=== PATIENT | male | born 1970 | race Caucasian/White ===

== ENCOUNTER 2017-02-16 01:46 | Inpatient (IN) | payer OTHER ==
[~2017-02-16] VITALS: Ht 166.4 cm; Wt 94.1 kg
--- NOTE | ~2017-02-16 | DS ---
PATIENT'S NAME: ANNETTE YBARRA [facility] AGE: 46 Y [address] ROOM: [id number] [place], [place] [address] LOCATION: [facility] ADMIT DATE: 02/16/2017 Discharge Summary DISCHARGE DATE: 02/18/2017 FAMILY PHYSICIAN: Physician, Unknown ATTENDING PHYSICIAN: Denae Cabral PRINCIPAL DISCHARGE DIAGNOSIS: Hemoptysis with a right upper lobe source. SECONDARY DIAGNOSES: 1. Long use of tobacco. 2. 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 3. Hypertension, severe. 4. Hyperlipidemia. 5. Obstructive sleep apnea, treated with CPAP at 18 cm of water. 6. History of cardiomyopathy with an EF of 20-30% documented on [facility] admission from 05/01/2016. 7. History of multisubstance abuse. 8. Acute kidney injury versus chronic kidney disease. Creatinine of 1.3 on admission, it improved to 1.2 on the . CONSULTATIONS: 1. ENT, Abran Cortes on 02/16/2017. 2. Pulmonology, Dr. Blue on 02/16/2017. PROCEDURES: 1. Flexible laryngoscopy on 02/16/2017. 2. Bronchoscopy, 02/16/2017. BRIEF HISTORY: Mr. Ybarra is a 46-year-old male, who has severe hypertension requiring multiple medications. He has cardiomyopathy for which he reports he has been hospitalized at least 4 times. He is unsure of the etiology, but this may be hypertensive heart disease related to his poorly- controlled hypertension and then he has a long history of smoking. He presented to the hospital at [place] with hemoptysis which started about 4 o'clock in the afternoon with severe cough. The cough had not been prominent prior to the episode, was associated with coughing up bright red blood. He was transferred here for further evaluation and management. A CT scan at [place] had showed apical bullae, worse on the right than the left. He was initially seen by ENT and there was no upper airway bleeding. Dr. Blue took him for bronchoscopy and found a source of bleeding in the right upper lobe. An attempt was made at an embolization by Dr. Gay in Interventional Radiology. However, the vessel was too small and not amenable PATIENT'S NAME: ANNETTE YBARRA [facility] AGE: 46 Y [address] ROOM: [id number] [place], [place] [address] LOCATION: GICU ADMIT DATE: 02/16/2017 Discharge Summary DISCHARGE DATE: 02/18/2017 FAMILY PHYSICIAN: Physician, Unknown ATTENDING PHYSICIAN: Denae Cabral to the procedure. Subsequently, the patient's bleeding has subsided and he has had no bright red blood coughed up in the last 24 hours. He is ready for discharge. He has been encouraged to stop smoking by several of us and I again repeated my encouragement to smoking cessation. Now at the time of discharge, he has been on a NicoDerm patch and it was increased from 14 mg to 21 mg, but he said it does not impact his urge to smoke. He also has been unable to maintain care with a stable primary care physician. The healthcare administrative assistant gave him several options in [place] yesterday. INSTRUCTIONS AT DISCHARGE: 1. Diet: [place] [employer], low fat. 2. Activity: Walk 15 minutes every morning and 15 minutes in the evening. 3. Followup: Follow up with Dr. Blue in 2 weeks and establish care with a primary care physician in the near future. MEDICATIONS AT THE TIME OF DISCHARGE: 1. Amlodipine 10 mg p.o. daily. 2. Coreg 12.5 mg p.o. b.i.d. 3. Hydralazine 50 mg p.o. t.i.d. 4. Lisinopril 40 mg daily. 5. Potassium chloride 20 mEq daily. 6. Zocor 40 mg at bedtime. 7. Aspirin will be held for now. 8. Lasix 40 mg daily. We will advise him to consider resume aspirin after he sees Dr. Blue in 2 weeks. CONDITION AT DISCHARGE: Good. TIME SPENT: Less than 30 minutes. MEGA RIVERS MD LM/orly /[id number] d: 02/18/17 2354 t: 02/20/17 1856, DISCHARGE SUMMARY
--- NOTE | ~2017-02-16 | OR ---
PATIENT'S NAME: ANNETTE STEVENS [facility] AGE: 46 Y [address] ROOM: [id number], [place] [address] LOCATION: GICU ADMIT DATE: 02/16/2017 OR/Procedure Report DISCHARGE DATE: 02/18/2017 FAMILY PHYSICIAN: Physician, Unknown ATTENDING PHYSICIAN: Denae Cabral SURGEON: Thony Blue MD SOLDERING MACHINE SETTER: DATE OF PROCEDURE: 02/16/2017 PROCEDURE: Fiberoptic bronchoscopy. INDICATION FOR PROCEDURE: Hemoptysis. CONSENT: The risks and benefits of the procedure were discussed with the patient. He agrees to proceed with the procedure. PROCEDURE IN DETAIL: After the informed consent, the patient was brought to the endoscopy suite. General anesthesia was induced, please refer to the anesthesiology record. After the initial induction was done, an Olympus bronchoscope was introduced through a size 4 LMA into the tracheobronchial tree. The patient tolerated the procedure well. There were no immediate complications. FINDINGS ON PROCEDURE: The vocal cords were normal moving with breathing. The trachea was normal in caliber. There were no endobronchial lesions or secretions. There was trace that led down to the kelly, which was suctioned out. The kelly was sharp and non-splayed. The left mainstem was patent with no endobronchial lesions or secretions. The left upper lobe was patent with no endobronchial lesions or secretions. The left lower lobe was patent with no endobronchial lesions or secretions. There was blood coming down the left lung, which was suctioned out. The left upper and lower lobes were washed out using saline and there was no blood return. Right mainstem was patent. The right lower lobe was also patent. Right middle lobe was patent. There was bloody secretions was suctioned out. The right middle and right lower were washed out with no blood return. The right upper lobe on the other hand had a streak of blood coming down which was washed out using 20 mL of saline and then there was more blood coming out from the right upper lobe apical segment. There was no other segments found to be bleeding in the right upper lobe. The patient tolerated the procedure well. There were no immediate complications. The patient was extubated and transferred to PACU in stable condition. PATIENT'S NAME: ANNETTE STEVENS [facility] AGE: 46 Y [address] ROOM: [place] [address] LOCATION: GICU ADMIT DATE: 02/16/2017 OR/Procedure Report DISCHARGE DATE: 02/18/2017 FAMILY PHYSICIAN: Physician, Unknown ATTENDING PHYSICIAN: Denae Cabral RECOMMENDATIONS: We will await. The patient will require bronchial artery embolization. Dr. Rock has been contacted and we will follow up after the embolization has been done. MD SILVANO DEL TORO/orly /[id number] d: 03/10/17 2353 t: 03/17/17 1706, OPERATIVE SUMMARY
--- NOTE | ~2017-02-16 | CON ---
PATIENT'S NAME: ANNETTE YBARRA [facility] AGE: 46 Y [address] ROOM: [place] [address] LOCATION: GICU ADMIT DATE: 02/16/2017 Consultation DISCHARGE DATE: FAMILY PHYSICIAN: PHYSICIAN, UNKNOWN ATTENDING PHYSICIAN: YORDY CABRAL DATE OF CONSULTATION: 02/16/2017 REFERRING PHYSICIAN: Yordy Cabral MD REASON FOR CONSULTATION: Hemoptysis. HISTORY OF PRESENT ILLNESS: Mr. Ybarra is a 46-year-old male who presented to the emergency room in [place] yesterday for hemoptysis. It started around 4:00 p.m. yesterday. He was doing his regular business and began coughing. He did not have any shortness of breath or chest pain prior to this episode. Later that night, he went to the [place] ER. He has been feeling well other than this hemoptysis. He has not had any fevers or chills. He has not had any exposures to TB that he knows of. At [place], he did have a CT scan of his chest, which did not show any obvious abnormalities. No recent travel. He has not had any history of chest procedures including valve repairs, repair of tracheoesophageal fistula. Since being admitted to [facility], he continues to have hemoptysis this morning. No difficulty breathing except for when he gets into coughing fits. REVIEW OF SYSTEMS: Comprehensive review of systems performed is negative except as noted per HPI. PAST MEDICAL HISTORY: Significant for hypertension and congestive heart failure, with recovered ejection fraction of 55%. MEDICATION: Per chart. He is on aspirin 81 mg. No other anticoagulants. ALLERGIES: NO KNOWN DRUG ALLERGIES. FAMILY HISTORY: Premature coronary artery disease. SOCIAL HISTORY: He is a lifelong smoker and currently smokes about a half a pack a day, starting when he was 20. He is not a heavy drinker and does not use any other PATIENT'S NAME: ANNETTE YBARRA [facility] AGE: 46 Y [address] ROOM: [place] [address] LOCATION: GICU ADMIT DATE: 02/16/2017 Consultation DISCHARGE DATE: FAMILY PHYSICIAN: PHYSICIAN, UNKNOWN ATTENDING PHYSICIAN: YORDY CABRAL illicit drugs. PHYSICAL EXAMINATION: GENERAL: His voice is strong, in no acute distress. He is coughing, at times which is productive of blood. He is alert oriented x3. FACE: There are no lesions over his face. Parotid glands are symmetric without masses. EYES: Pupils equal, round, reactive to light. Extraocular muscles are intact. EARS: Ears are normal in appearance. NOSE: External nose is normal. There is some crusting anteriorly on the inferior turbinate, but no signs of active bleeding. MOUTH: Dental and alveolar structures are in fair repair. Mucosa of oral cavity and oropharynx is without any lesions. There is residual blood in his posterior pharynx. NECK: There is no cervical lymphadenopathy. The trachea is midline. THYROID: Without any nodularity. NEUROLOGIC: Cranial nerves 2-12 are grossly intact. CARDIOVASCULAR: Pulse is regular. RESPIRATORY: Symmetric chest rise. No stridor. PROCEDURE: Flexible laryngoscopy. INDICATION: Hemoptysis. The flexible laryngoscope was used for this examination. The patient has a septal deviation up to the right. The scope was passed into the left nasal passage. The nasal cavity was without any abnormalities. No purulence filling at the middle meatus. Nasopharynx was normal. Eustachian tubes seen bilaterally were normal. The scope was directed to the base of tongue. There were no masses in the base of tongue. There was some residual blood in this area. I had the patient to swallow some water which did clear the area. No signs of active bleeding anywhere in the oropharynx or hypopharynx. The piriform sinuses were clear without any pooling of secretions. Epiglottis was normal. Arytenoids were normal. True vocal cords had full and symmetric movement. There are no masses seen on the true vocal cords. The scope was withdrawn. The patient tolerated the procedure okay. LABORATORY DATA: Report from the outside CT scan reviewed and negative for any acute findings. CBC shows a white count of 11, hemoglobin of 14.4, hematocrit 42.1, and platelet count of 207. PATIENT'S NAME: ANNETTE YBARRA [facility] AGE: 46 Y [address] ROOM: [address] [address] LOCATION: [facility] ADMIT DATE: 02/16/2017 Consultation DISCHARGE DATE: FAMILY PHYSICIAN: PHYSICIAN, UNKNOWN ATTENDING PHYSICIAN: YORDY CABRAL ASSESSMENT: Hemoptysis. PLAN: There is no evidence of a source of the hemoptysis on our examination with a flexible laryngoscopy. The bleeding is not appeared to be coming up from the esophagus as does seem to be coming up from the trachea. The patient will likely need a pulmonology consultation and possible bronchoscopy to further identify where the hemoptysis is coming from. RHODA RYAN, ENT RESIDENT PGY5 FOR ABRAN PINK MD JY/modl /[id number] CC: MD Abran Morris MD d: 02/16/17 1523 t: 02/23/17 0957, CONSULTATION REPORT
--- NOTE | ~2017-02-16 | HP ---
[facility] 46 Y [address] ROOM: [place] [address] LOCATION: [facility] ADMIT DATE: 02/16/2017 History & Physical DISCHARGE DATE: FAMILY PHYSICIAN: PHYSICIAN, UNKNOWN ATTENDING PHYSICIAN: YORDY XIE DATE OF SERVICE: CHIEF COMPLAINT: Hemoptysis. HISTORY OF PRESENT ILLNESS: A 46-year-old gentleman with a past medical history of lifelong smoking and cardiomyopathy of unknown etiology, with the last known ejection fraction of 55%, presented to the [facility] with hemoptysis which started yesterday evening about 5 p.m., sudden in onset, associated with dark, coughing up of bright red blood, not associated with any shortness of breath, but he does complain of tightness in his chest. No fever, no chills. No headache. No extremity swelling or no abdominal pain noted. On further inquiry, he did not have any cough yesterday morning. No history of loss of appetite or weight loss. No history of recent travel. REVIEW OF SYSTEMS: All other systems reviewed and were negative except for what is mentioned in the HPI. PAST MEDICAL HISTORY: 1. Hypertension. 2. Congestive heart failure with recovered ejection fraction. MEDICATIONS: Being reconciled right now. ALLERGIES: NO KNOWN DRUG ALLERGIES. FAMILY HISTORY: Significant for premature coronary artery disease. SOCIAL HISTORY: Pybmuu-ahwe-ohip smoking history. PHYSICAL EXAMINATION: VITAL SIGNS: Blood pressure 190/80, pulse 72, respirations 16, afebrile, saturating 95% on room air. PATIENT'S NAME: ANNETTE STEVENS [facility] AGE: 46 Y [address] ROOM: [address] [address] LOCATION: [facility] ADMIT DATE: 02/16/2017 History & Physical DISCHARGE DATE: FAMILY PHYSICIAN: PHYSICIAN, UNKNOWN ATTENDING PHYSICIAN: YORDY XIE GENERAL: In moderate acute distress due to cough and coughing up blood. Alert and oriented x3. HEENT: Head; atraumatic, normocephalic. Eyes; nonicteric, no pallor. Oropharynx, moist mucous membranes. Fresh blood is seen in the oropharynx. No obvious source of bleeding can be identified from this examination. LUNGS: Mild crepitations bilaterally in the bases. CARDIOVASCULAR: S1 and S2. No murmurs, gallops, or rubs. ABDOMEN: Soft, nontender, nondistended. Bowel sounds present. EXTREMITIES: No clubbing, cyanosis, or edema. PSYCH: Normal affect, mood, and speech. MUSCULOSKELETAL: No muscle tenderness or joint swelling noted. ENDOCRINE: No thyromegaly or myxedema noted. SKIN: No rashes or bruises noted. LABORATORY DATA: Lab work from outside facility including a CT scan and chest x-ray are negative for any acute findings. EKG was reviewed from outside facility, showed normal sinus rhythm with T-wave inversions in I and aVL, which are old. Other lab included white count of 5.2, hemoglobin of 15, platelets 210. Sodium 130, potassium 3.7, chloride 104, bicarb 29, BUN 20, creatinine 1.5, calcium 8.7. ASSESSMENT AND PLAN: 1. Hemoptysis. 2. Acute kidney injury. 3. Hypertensive urgency. We are going to admit this patient to the ICU. We are going to start racemic epinephrine nebulization. ENT consultation will be obtained. I did speak to Dr. Cortes and he advised me to start epinephrine. We are going to observe the patient for now if any improvement with this treatment; if no, we will ask Dr. Cortes to come in and see the patient, given that there is nothing on the CT scan. Based on Dr. Cortes's examination on laryngoscopy, we will consult Pulmonary if needs to be. He has already received some IV fluids at the outside facility. We will just monitor creatinine for now. We will provide blood pressure control with labetalol if needs to be. Activity as tolerated. N.p.o. for now. Cough suppressant will also be given. The patient is full code. MD ARIE PULLIAM/orly PATIENT'S NAME: ANNETTE STEVENS [facility] AGE: 46 Y [address] ROOM: [place] [address] LOCATION: GICU ADMIT DATE: 02/16/2017 History & Physical DISCHARGE DATE: FAMILY PHYSICIAN: PHYSICIAN, UNKNOWN ATTENDING PHYSICIAN: YORDY XIE /[id number] D: [id number] T: 337 HISTORY & PHYSICAL
--- NOTE | ~2017-02-16 | CON ---
PATIENT'S NAME: RODNEY [facility] AGE: 46 Y [address] ROOM: [id number] [place], [place] [address] LOCATION: GICU ADMIT DATE: 02/16/2017 Consultation DISCHARGE DATE: 02/18/2017 FAMILY PHYSICIAN: Physician, Unknown ATTENDING PHYSICIAN: Denae Cabral DATE OF CONSULTATION: 02/16/2017 REFERRING PHYSICIAN: Abran Cortes MD REASON FOR CONSULTATION: Hemoptysis. HISTORY OF PRESENTING ILLNESS: This is a 46-year-old gentleman with a past medical history of smoking, cardiomyopathy of unknown etiology with last known ejection fraction of 55% presented to the [facility] with hemoptysis which started the day prior to his admission. It was sudden onset associated with dark sputum, then started to be bright red blood, not associated with any shortness of breath, the hemoptysis was more than a tablespoon each time and it was mixed with phlegm initially and then it became just blood. He denied any fever, chest pain, pleurisy, hemoptysis, nausea, vomiting, abdominal pain. He denied any recent weight loss, exposure to sick people. He denied any recent travel outside of the [place] there is a history of drug abuse. REVIEW OF SYSTEMS: A 10-point review of system was done and otherwise negative other than mentioned in the history of presenting illness. PAST MEDICAL HISTORY: Include: 1. Hypertension. 2. Congestive heart failure. MEDICATIONS: Please refer to the MAR. ALLERGIES: NO KNOWN DRUG ALLERGIES. FAMILY HISTORY: Significant for premature coronary artery disease. His father had emphysema. His maternal grandfather had emphysema. SOCIAL HISTORY: Twenty pack-year smoking, there is history of drug abuse including marijuana. PATIENT'S NAME: [facility] [facility] AGE: 46 Y [address] ROOM: [id number] [place], [place] [address] LOCATION: [facility] ADMIT DATE: 02/16/2017 Consultation DISCHARGE DATE: 02/18/2017 FAMILY PHYSICIAN: Physician, Unknown ATTENDING PHYSICIAN: Denae Cabral PHYSICAL EXAMINATION: VITAL SIGNS: At initial evaluation, the patient was hypertensive, blood pressure was 190/80, pulse was 75, respirations were 16, afebrile, saturating 95% on room air. GENERAL: He was sitting in bed, comfortable, does not appear in acute distress. Oriented x3. HEENT: Normocephalic, atraumatic. Wet mucous membranes. No ear or nasal discharge noted. Eyes are nonicteric. Pupils are equal, reactive to light and accommodation. LUNGS: Mild crepitations bilaterally at the bases. There is good bilateral air entry. There is a mild wheeze on forced expiration. HEART: S1, S2. No murmurs, rubs, or gallops appreciated. ABDOMEN: Soft, nontender, no palpable organs. Positive bowel sounds, slightly distended. EXTREMITIES: There is no clubbing, cyanosis, or edema. SKIN: No rashes or bruises noted. MUSCULOSKELETAL: There is no muscle tenderness or joint swelling noted. LABORATORY DATA: At the time of admissions include, a CT scan of the chest. Chest x-ray are negative for any acute findings. There is bullae at the right upper lobe. EKG was reviewed from outside facility which showed normal sinus rhythm with T- wave inversions in 1 and aVL, which were old. Other lab included, white cell count of 5.2, hemoglobin of 15, platelets 210. Sodium 130, potassium is 3.7, chloride 104, bicarb 29, BUN of 20, creatinine 1.5, and calcium 8.7. ASSESSMENT AND PLAN: 1. Hemoptysis. 2. Acute kidney injury. 3. Hypertensive urgency. IMPRESSION: 1. Hemoptysis in a patient who has been a smoker for a long time, although the CT scan does not show any finding to justify hemoptysis, the current point, given the fact that the upper airway has been inspected by ENT and there has been no source of bleeding and the patient continues to bleed. We will proceed with bronchoscopy. The risks and benefits of the procedure were discussed with the patient including the risk of bleeding, infection, pneumothorax. He agrees to proceed with the procedure. The risks of general anesthesia were explained by Anesthesiology. 2. At the current point, I will give the patient cough suppressant to decrease the amount of breathing. 3. I will obtain better control of his blood pressure. 4. Stay away from anticoagulants. PATIENT'S NAME: ANNETTE STEVENS [facility] AGE: 46 Y [address] ROOM: [id number] [place] [address] LOCATION: GICU ADMIT DATE: 02/16/2017 Consultation DISCHARGE DATE: 02/18/2017 FAMILY PHYSICIAN: Physician, Unknown ATTENDING PHYSICIAN: Denae Cabral. I would recommend GI/DVT prophylaxis at the current point. We will follow up post bronchoscopy. Thank you for allowing me to participate in the care of this patient. MD SILVANO DEL TORO/orly /[id number] P d: 03/11/17 0000 t: 03/17/17 1708, CONSULTATION REPORT
[2017-02-16] MEDS ORDERED: ASPIRIN LO-DOSE81 MG PO (04:05)
[2017-02-16] MEDS ORDERED: ZESTRIL40 MG PO (04:06)
[2017-02-16] MEDS ORDERED: NORVASC10 MG PO (04:06)
[2017-02-16] MEDS ORDERED: COREG12.5 M1 PO (04:07)
[2017-02-16] MEDS ORDERED: LASIX40 MG PO (04:08)
[2017-02-16] MEDS ORDERED: APRESOLINE50 MG PO (04:09)
[2017-02-16] MEDS ORDERED: ZOCOR40 MG PO (04:10)
[2017-02-16] MEDS ORDERED: POTASSIUM CHLO20 ME1 PO (04:10)
[2017-02-16 04:44] LABS: BASOPHIL # 0.1 K/uL (0.0-0.2); EOSINOPHIL # 0.5 K/uL (0.0-0.5); EOSINOPHIL % 4.3 %; HEMATOCRIT 42.1 % (37.0-53.0); HEMOGLOBIN 14.4 g/dL (12.0-17.0); IMMATURE GRANULOCYTE # 0.1 K/uL (0.0-0.3); IMMATURE GRANULOCYTE % 0.5 %; LYMPHOCYTE # 2.6 K/uL (0.8-4.0); LYMPHOCYTE % 23.3 %; MCH 30.5 pg (27.0-34.0); MCHC 34.2 gm/dL (32.0-36.5); MCV 89.2 fl (83.0-98.0); MONOCYTE % 9.2 %; MPV 12.8 fl (9.4-12.4); NEUTROPHIL # (ANC) 6.9 K/uL (1.4-9.0); NEUTROPHIL % 61.7 %; NRBC % 0 /100WBC (0-0.00); PLATELET COUNT 207 K/uL (150-450); RBC 4.72 M/uL (4.00-6.00); WBC 11.2 K/uL (4.0-11.0)
[2017-02-16 05:02] LABS: ANION GAP 10.8 (10.0-19.0); CALCIUM 8.2 mg/dL (8.5-10.5); CREATININE 1.3 mg/dL (0.6-1.3); POTASSIUM 3.8 mMol/L (3.7-5.1)
[2017-02-17 05:29] LABS: BASOPHIL # 0.1 K/uL (0.0-0.2); BASOPHIL % 0.6 %; EOSINOPHIL # 0.1 K/uL (0.0-0.5); EOSINOPHIL % 1.2 %; HEMATOCRIT 37.8 % (37.0-53.0); HEMOGLOBIN 12.9 g/dL (12.0-17.0); IMMATURE GRANULOCYTE % 0.4 %; LYMPHOCYTE # 1.5 K/uL (0.8-4.0); LYMPHOCYTE % 15.4 %; MCH 30.6 pg (27.0-34.0); MCHC 34.1 gm/dL (32.0-36.5); MCV 89.6 fl (83.0-98.0); MONOCYTE # 0.5 K/uL (0.0-1.0); MONOCYTE % 5.1 %; MPV 12.7 fl (9.4-12.4); NEUTROPHIL # (ANC) 7.5 K/uL (1.4-9.0); NEUTROPHIL % 77.3 %; NRBC % 0 /100WBC (0-0.00); PLATELET COUNT 198 K/uL (150-450); RBC 4.22 M/uL (4.00-6.00); RDW-CV 13.2 % (11.9-14.6); WBC 9.7 K/uL (4.0-11.0)
[2017-02-17 05:56] LABS: ANION GAP 9.6 (10.0-19.0); CALCIUM 8.4 mg/dL (8.5-10.5); CREATININE 1.2 mg/dL (0.6-1.3); POTASSIUM 3.6 mMol/L (3.7-5.1)
[2017-02-18] MEDS ORDERED: NICOTINE PATCH1 EAC1 TRANS (11:20)
== END 2017-02-18 11:45 | disposition disaster alternative care site (69) | DRG 204 ==
LOC: GICU 02:59
PROVIDERS: Internal Medicine; ADMIT Internal Medicine
PROC: 0BJ08ZZ Inspection of Tracheobronchial Tree, Via Natural or Artificial Opening Endoscopic (ICD-10-PCS; principal; 2017-02-16)
DX: R04.2 Hemoptysis (principal); N17.9 Acute kidney failure, unspecified; I42.9 Cardiomyopathy, unspecified; I50.9 Heart failure, unspecified; G47.33 Obstructive sleep apnea (adult) (pediatric); I16.0 Hypertensive urgency; I12.9 Hypertensive chronic kidney disease with stage 1 through stage 4 chronic kidney disease, or unspecified chronic kidney disease; N18.9 Chronic kidney disease, unspecified; Z87.898 Personal history of other specified conditions; F17.210 Nicotine dependence, cigarettes, uncomplicated; Z79.82 Long term (current) use of aspirin; E78.5 Hyperlipidemia, unspecified
CPT/HCPCS: C1760; C1769; C1887; J0171; J1644; J2250; J2270; J3010; J7030

== ENCOUNTER 2017-02-20 05:53 | Inpatient (IN) | payer OTHER ==
[~2017-02-20] VITALS: Ht 167.6 cm; Wt 92.2 kg
--- NOTE | ~2017-02-20 | CON ---
PATIENT'S NAME: [facility] AGE: 46 Y [address] ROOM: [id number] [place], [place] [address] LOCATION: [facility] ADMIT DATE: 02/20/2017 Consultation DISCHARGE DATE: FAMILY PHYSICIAN: PHYSICIAN, NO ATTENDING PHYSICIAN: Thang PATRICK REFERRING PHYSICIAN: Thony Blue MD REFERRING PHYSICIAN: Thang Patrick MD REASON FOR CONSULT: Preop risk evaluation for possible lobectomy. HISTORY OF PRESENT ILLNESS: This is a 46-year-old gentleman who was admitted on the with complaints of hemoptysis. He was initially admitted to the hospital on February 16 and discharged on the for the same symptoms. He was seen by Dr. Blue and had undergone a bronchoscopy which showed right upper lobe bleeding. He was seen again by IR for possible embolization, but was not able to have it done as it was to difficult to find the bronchial airway due to bleeding. His symptoms improved, and he was discharged. He woke up today with complaints of hemoptysis and reported about a half a cup of kelli red blood. He denies complaints of chest discomfort. He denied nausea or vomiting. No abdominal pain. No report of fever or chills. He does report that he has problems with shortness of breath. In preparation for possible lobectomy, he had a repeat echocardiogram that was done on 02/20/2017 showing an EF of 60% with moderate inferior septal hypokinesis. Annette is originally from [place] and had undergone a left heart catheterization in 2010. In 2015, he was at [facility] for hypertensive crisis, and his EF at that time was 25%. He had an echocardiogram on 10/16/2016 as an outpatient with an EF of 55% with mild pulmonary hypertension and RVSP. In addition, he carries a history of obstructive sleep apnea and uses CPAP at 16 cm of water nightly at home. PAST MEDICAL HISTORY: 1. Dilated cardiomyopathy, etiology is unclear. 2. History of nonobstructive coronary artery disease per left heart catheterization in 2010. 3. Poorly controlled hypertension. 4. Substance abuse including marijuana and methamphetamine. Last use of methamphetamine was 4 months ago. 5. Obstructive sleep apnea. PAST SURGICAL HISTORY: 1. He has had a left heart catheterization in 2010. PATIENT'S NAME: [facility] AGE: 46 Y [address] ROOM: [place] [address] LOCATION: GI ADMIT DATE: 02/20/2017 Consultation DISCHARGE DATE: FAMILY PHYSICIAN: PHYSICIAN, NO ATTENDING PHYSICIAN: Thang PATRICK 2. Flex laryngoscopy and a bronchoscopy in 2017. ALLERGIES: NONE TO MEDICATIONS. MEDICATIONS: Current medications in the hospital are: 1. Nitroglycerin IV to keep blood pressure less than 130. 2. Aldactone 50 mg daily. 3. Coreg 12.5 mg b.i.d. 4. Lasix 40 mg daily. 5. Norvasc 10 mg daily. 6. Zestril 40 mg daily. 7. Zocor 40 mg every h.s. 8. NicoDerm 21 mg every day. FAMILY HISTORY: Father had CABG at the age of 42. He has hypertension and elevated cholesterol. He is still alive. Mother had congestive heart failure and hypertension. She has elevated cholesterol as well. SOCIAL HISTORY: He has a significant other. He has been a smoker for over 30 years, half a pack to a full pack a day. REVIEW OF SYSTEMS: GENERAL: He complains of some mild fatigue. HEAD: No history of headache. EYES: No blurred vision or double vision. EARS: No problems with hearing. NOSE: No epistaxis or rhinorrhea. MOUTH: No gingival bleeding. THROAT: He denies difficulty with swallowing. PULMONARY: He is complaining of hemoptysis. GASTROINTESTINAL: Negative for nausea, vomiting, or diarrhea. No melena or hematochezia. No history of hemorrhoids, yellow jaundice, or elevated liver enzymes. GENITOURINARY: Negative for urinary frequency or urgency. No nocturia. MUSCULOSKELETAL: No complaints of arthralgias or myalgias. PHYSICAL EXAMINATION: VITAL SIGNS: Blood pressure currently 165/90 to 148/80, his heart rate is 76 and regular sinus rhythm, temperature is 98. He is 5 feet 6 inches with a weight of 203 pounds. SKIN: Warm, dry, and pink. PATIENT'S NAME: [facility] AGE: 46 Y [address] ROOM: [id number] [place] [address] LOCATION: [facility] ADMIT DATE: 02/20/2017 Consultation DISCHARGE DATE: FAMILY PHYSICIAN: PHYSICIAN, NO ATTENDING PHYSICIAN: Thang PATRICK HEENT: Pupils equal, round, and react briskly. NECK: Soft and supple. No lymphadenopathy or thyromegaly. JVD is flat. RESPIRATORY: Lung sounds are clear without evidence of wheezes, rales, or rhonchi. There is no hemoptysis at this time. CARDIOVASCULAR: Regular with normal S1 and S2 without murmur, rub, or click. ABDOMEN: Soft. Bowel sounds are present. EXTREMITIES: No peripheral edema. No clubbing. No cyanosis. LABORATORY DATA: CBC today showed a white count of 11.3, hemoglobin 11.9, hematocrit 34.3, and platelets are 241. Glucose is 101, BUN 14, creatinine 1.2, sodium 140, potassium 3.7, and chloride 106. INR 0.87. ASSESSMENT: 1. Preop risk evaluation. I discussed his case with Dr. Barry Breen. He plans to review the echocardiogram. He is reporting that he is currently not an ideal situation for need of a catheterization secondary to his hemoptysis. Further recommendations will be forthcoming. 2. History of dilated cardiomyopathy. His ejection fraction is normal. 3. Tobacco use. Highly recommend that he stop smoking. 4. Obstructive sleep apnea. Would recommend that he bring in his CPAP and use his CPAP here. 5. Hemoptysis. This is per Pulmonology Services. The assessment and plan, history of present illness, and physical exam are per Dr. Barry Breen. Further recommendations will be forthcoming. MAJO PALACIOS APRN FOR MD CHRISTIAN DAVID/orly /[id number] d: 02/21/17 1454 t: 03/12/17 1620, CONSULTATION REPORT
--- NOTE | ~2017-02-20 | ECHO ---
Transthoracic Echocardiography Report (TTE) Demographics Patient Name ANNETTE STEVENS Date of Study 02/20/2017 Patient Number [id number] Visit Number [id number] Date of 1970 Room Number G6206 Accession Number [id number] Gender Male Age 46 year(s) Referring Darnell Desir Neuroscience Specialist Phoebe Jj RVT Physician DARNELL DESIR Physician Interpreting Chauncey Damico Direct Of [employer] Physician MD Supervising Ordering Physician Darnell Desir MD/MLP Nurse Stress Director Manufacturing Engineering Conclusions Contractility Score Summary Normal Left Ventricular contractility was noted. Summary The estimated left ventricular ejection fraction is 60-65% despite moderate inferoseptal hypokinesia.Moderate to severe concentric left ventricular hypertrophy.Normal internal dimension. Trivial mitral regurgitation by color Doppler Trivial pulmonic valve regurgitation by color Doppler. Procedure Type of Study TTE procedure:2D Echocardiogram. Procedure Date Date: 02/20/2017 Start: 01:58 PM Study Location: Inpatient Portable Technical Quality: Adequate visualization Indications:Hemoptysis. Additional Indications:hemoptosis Appropriate Use Criteria: 9 Patient Status: Routine BP: 123/72 mmHg M-Mode/2D Measurements LV Diastolic Dimension: 4.07 cm LV Systolic Dimension: 3.37 cm LV Septum Diastolic: 2.1 cm LV PW Diastolic: 1.84 cm AO Root Dimension: 2.8 cm AV Cusp Separation: 1.9 cm RV Diastolic Dimension: 2.43 cm LA Dimension: 3.1 cm LVOT: 2.1 cm RV Base: 2.82 cm LVOT VTI: 13.8 cm RV Mid: 2.46 cm LV Stroke volume: 47.77 ml TAPSE: 2.38 cm TDI-S': 15.2 cm/s Doppler Measurements AV Peak Velocity: 1.35 m/s MV Peak E-Wave: 0.57 m/s AV Peak Gradient: 7.29 mmHg MV Peak A-Wave: 0.71 m/s AV Mean Gradient: 4 mmHg MV E/A Ratio: 0.79 LVOT Peak Velocity: 0.91 m/s MV P1/2t: 73 msec PV Peak Velocity: 1.09 m/s E' Septal Velocity: 0.05 m/s PV Peak Gradient: 4.75 mmHg E' Lateral Velocity: 0.13 m/s A' Septal Velocity: 0.1 m/s A' Lateral Velocity: 0.07 m/s Findings Left Ventricle Moderate to severe concentric left ventricular hypertrophy with normal internal dimension and EF despite moderate inferoseptal hypokinesia. Right Ventricle Normal right ventricle structure and function. Left Atrium Normal left atrial size. Right Atrium Normal right atrial size. Mitral Valve Trivial mitral regurgitation by color Doppler. Aortic Valve Normal aortic valve structure and function. Tricuspid Valve Normal tricuspid valve structure and function. Pulmonic Valve Trivial pulmonic valve regurgitation by color Doppler. Pericardial Effusion No evidence of pericardial effusion. Miscellaneous Visualized portions of the aortic root and ascending aorta appear normal in size. Pleural Effusion No evidence of pleural effusion. Contractility Score LV regional wall motion:(0-Non visualized 1-Normal 2-Hypokinesis 3-Akinesis 4-Dyskinesis 5-Aneurysm) Signature dtt: Margaux Grossman dtd: 02/20/17 1358 Physician Self Edit
--- NOTE | ~2017-02-20 | ER ---
PATIENT'S NAME: ANNETTE YBARRA [facility] AGE: 46 Y [address] ROOM: [address] [address] LOCATION: [facility] ADMIT DATE: 02/20/2017 ER/Outpatient Report DISCHARGE DATE: FAMILY PHYSICIAN: PHYSICIAN, NO ATTENDING PHYSICIAN: Thang PATRICK CHIEF COMPLAINT: Coughing up blood. HISTORY OF PRESENT ILLNESS: I saw Mr. Ybarra in conjunction with the resident, Dr. Peralta. Please see her dictation for complete H and P. In short, Mr. Ybarra was admitted recently for hemoptysis. Attempts at cessation of bleeding were unsuccessful. Based on the bronchoscopy by Dr. Blue, the bleeding was from the right upper lobe and Dr. Comer from Interventional Radiology attempted IR embolization, but was unable to do so. The patient had cessation of bleeding and was discharged with instructions to return if recurrent. Around 5 o'clock this morning, the bleeding returned. He drove himself in with his significant other for evaluation. He states that he had improved initially, but it is now worsening again yet this morning, and it is mostly just blood. He has a marked history including 30 pack years of smoking, marked cardiomyopathy, and marked hypertension that is poorly controlled. The patient was hemodynamically stable other than hypertension. He was ultimately started on a nitroglycerin drip to control his hypertension and minimize his bleeding. This did actually help. I discussed the case with Dr. Blue, insulator cutter and former; Dr. Ortiz, cardiothoracic surgeon, and Dr. Patrick, hospitalist. The patient will be admitted to the Hospitalist Service in the intensive care unit for hemoptysis. They will re-evaluate the patient from a surgical and pulmonology standpoint to see what the best optimal therapy as moving forward given his multiple underlying severe comorbidities. All questions were answered, and the patient was admitted. MD PRASHANT LEWIS/orly /[id number] d: 02/20/17 1627 t: 03/03/17620, OUTPATIENT REPORT
--- NOTE | ~2017-02-20 | DS ---
PATIENT'S NAME: ANNETTE STEVENS [facility] AGE: 46 Y [address] ROOM: [id number], [place] [address] LOCATION: GICU ADMIT DATE: 02/20/2017 Discharge Summary DISCHARGE DATE: 02/23/2017 FAMILY PHYSICIAN: PHYSICIAN, NO ATTENDING PHYSICIAN: Thang Patrick ADMITTING DIAGNOSIS: Massive hemoptysis. DISCHARGE DIAGNOSIS: Massive hemoptysis, resolved. SECONDARY DIAGNOSES: 1. Hypertensive emergency. 2. Diastolic heart failure. 3. Chronic obstructive pulmonary disease. 4. Obstructive sleep apnea. 5. History of tobacco use. 6. History of multiple drug abuse. 7. History of marijuana use. PROCEDURES: Echocardiogram and chest x-ray. CONSULTATIONS: Vascular Surgery, Cardiology, CT Surgery, and Pulmonology. HISTORY OF PRESENT ILLNESS: The patient is a 46-year-old gentleman with past medical history of COPD, obstructive sleep apnea, cardiomyopathy, and recent history of right upper lobe hemoptysis, who presents here with hemoptysis. The patient was initially admitted to our hospital on February 16 and discharged on February 18, presented with same symptoms. The patient was seen by Dr. Blue and had a bronchoscopy, which showed right upper lobe bleeding. The patient was subsequently seen by IR for possible embolization, however, embolization was not able to be done as it was difficult to find a bronchial artery. During his stay, the patient's symptoms improved. The patient was discharged home in stable condition for followup, however, the patient presented with hemoptysis. HOSPITAL COURSE: The patient was admitted to the ICU. On admission, the patient was noted to have a systolic blood pressure in the 180s-190s. The patient was initially started on nitroglycerin drip with improvement of blood pressure. The patient also continued home medication of blood pressure. The patient was started on an antihypertensive medication with improvement of hemoptysis. The hemoptysis improved somewhat overnight, but however, continued to improve during his stay. The patient was seen by CT Surgery during his stay. Recommended to have repeat IR intervention instead of surgery. Also a secondary workup was done for elevated blood pressure. The patient had an MRI with contrast of his renal artery, which was normal. No PATIENT'S NAME: ANNETTE STEVENS [facility] AGE: 46 Y [address] ROOM: [id number] [place], [place] [address] LOCATION: GICU ADMIT DATE: 02/20/2017 Discharge Summary DISCHARGE DATE: 02/23/2017 FAMILY PHYSICIAN: PHYSICIAN, NO ATTENDING PHYSICIAN: Thang Patrick signs of renal artery stenosis were noted. Also, the patient had pheochromocytoma workup with a 24-hour urine collection, results are currently pending. The patient has a history of nonischemic cardiomyopathy with an EF of 30% at [place], and reports that he had a coronary angiogram done in 2010, which was unremarkable. The patient had a repeat echocardiogram, which shows EF of 65%, however, did show some inferoseptal dyskinesia. Cardiology was consulted for evaluation of ischemia. However, the patient did not have chest pain and EKG was unremarkable. To hold off ischemic workup until hemoptysis is being resolved. The patient's blood pressure improved. The patient was discontinued from nitroglycerin drip and his oral medication was titrated. The patient's blood pressure medication was added another spironolactone 50 mg daily with adequate improvement of blood pressure. The patient is to be discharged home in stable condition, to follow Dr. Blue to have an IR intervention with a radiologist at [place] in 1 month for embolization of the bronchial artery. CONDITION: Stable. DISPOSITION: Home. DISCHARGE MEDICATIONS: See MAR. DISCHARGE INSTRUCTIONS: If the patient has hemoptysis, to come to the emergency department. PENDING STUDIES: Pheochromocytoma, urinary workup. FOLLOWUP: Follow up with Dr. Blue in 1 week, with Dr. Breen, also with his primary care physician. Greater than 30 minutes was spent on the patient's care. MD HUMBERTO FRASER/orly /[id number] d: 02/24/17 0047 t: 03/07/17 1552, DISCHARGE SUMMARY
--- NOTE | ~2017-02-20 | ER ---
PATIENT'S NAME: ANNETTE STEVENS [facility] AGE: 46 Y [address] ROOM: [place] [address] LOCATION: [facility] ADMIT DATE: 02/20/2017 ER/Outpatient Report DISCHARGE DATE: FAMILY PHYSICIAN: PHYSICIAN, NO ATTENDING PHYSICIAN: Thang PATRICK TIME OF ARRIVAL: 5:53 a.m. TIME OF EVALUATION: 6:20 a.m. CHIEF COMPLAINT: Hemoptysis. HISTORY OF PRESENT ILLNESS: This is a 46-year-old male who presented to the ER this morning with hemoptysis. He reports that he noticed bright red bleeding this morning. Upon arrival to the ER, he does notice that there is some mucus mixed in with this. He was previously admitted from 02/16 to 02/18 for hemoptysis, was noted to have right upper lobe bullae at that time. Bronchoscopy was performed which showed that the bleeding was right upper lobe. Attempt at embolization was made by Dr. Gay; however, was not amenable to being embolized. At this time, he reports mild chest discomfort on the right side as well as mild shortness of breath. He does not describe it as a pain and reports that there is no radiation of the pain. No tearing. Does have mild lightheadedness. No dizziness. Mild nausea. No vomiting. No abdominal pain, diarrhea, constipation, or urinary complaints. PAST MEDICAL HISTORY: Significant for uncontrolled hypertension; tobacco abuse; marijuana use; history of drug abuse, amphetamines in particular; hyperlipidemia; ALDA; CHF, with a known EF of 20% to 30% last year; as well as CKD. SOCIAL HISTORY: He lives in [place] with his girlfriend. Smokes half pack to one pack of cigarettes per day. Does report that at one point he did smoke 2 packs per day. He does drink some alcohol on occasion. Currently, smokes marijuana. He does not do any other drugs and is in the process of applying for disability. MEDICATIONS: Include: 1. Lisinopril 40 mg daily. 2. Amlodipine 10 mg daily. PATIENT'S NAME: ANNETTE STEVENS [facility] AGE: 46 Y [address] ROOM: [place] [address] LOCATION: [facility] ADMIT DATE: 02/20/2017 ER/Outpatient Report DISCHARGE DATE: FAMILY PHYSICIAN: , JAYLEN ATTENDING PHYSICIAN: Thang PATRICK 3. Carvedilol 12.5 mg b.i.d. 4. Lasix 40 mg daily. 5. Hydralazine 50 mg t.i.d. 6. Potassium 20 mEq daily. 7. Simvastatin 40 mg daily. 8. Nicotine patch. ALLERGIES: HE HAS NO KNOWN DRUG ALLERGIES. REVIEW OF SYSTEMS: All review of systems were obtained and are negative with the exception of those noted in the HPI. PHYSICAL EXAMINATION: VITAL SIGNS: Blood pressure 158/98, pulse is 86, respiratory rate 18, temperature 97.3, and 94% to 96% on room air. GENERAL: He is a 46-year-old male appearing his stated age, in no apparent distress. Alert and oriented x3. HEENT: Pupils equal, round, and reactive to light. Moist mucous membranes. CARDIOVASCULAR: Regular rate and rhythm. No murmurs auscultated. LUNGS: Clear to auscultation bilaterally. No rales, rhonchi, or wheezing. ABDOMEN: Positive bowel sounds. Nontender. EXTREMITIES: 2+ pulses in both the upper and lower extremities. No edema noted. LABORATORY AND DIAGNOSTIC DATA: Chest x-ray unremarkable for acute findings. Lab work was pertinent for an INR of 0.87. On his renal panel, he did have a creatinine of 1.2 which is stable from previous. Otherwise, it was unremarkable. Hemoglobin of 13.3, white blood count of 9.6, and platelets were 243. IMPRESSION: Hemoptysis secondary to right upper lobe bullae. EMERGENCY DEPARTMENT COURSE: The patient was discussed with Dr. Blue, Pulmonology, who previously had been consulted on him during his last admission. Dr. Ortiz was also contacted, and the patient was admitted to the ICU by Dr. Patrick for possible embolectomy versus repeat attempt at embolization. The patient was also seen by Dr. Helms who saw and evaluated the patient and agrees with the assessment and plan. PATIENT'S NAME: ANNETTE STEVENS [facility] AGE: 46 Y [address] ROOM: [place] [address] LOCATION: [facility] ADMIT DATE: 02/20/2017 ER/Outpatient Report DISCHARGE DATE: FAMILY PHYSICIAN: PHYSICIAN, JAYLEN ATTENDING PHYSICIAN: Thang PATRICK OLIMPIA SEWELL MD FOR KERMIT HELMS MD CW/modl /[id number] I have seen and evaluated this patient personally. I have reviewed the plan of care as noted above and have dictated a short note as well. Kermit Helms MD d: 02/20/17 1436 t: 03/03/17 0627, OUTPATIENT REPORT
--- NOTE | ~2017-02-20 | CON ---
PATIENT'S NAME: ANNETTE STEVENS [facility] AGE: 46 Y [address] ROOM: [place] [address] LOCATION: GICU ADMIT DATE: 02/20/2017 Consultation DISCHARGE DATE: 02/23/2017 FAMILY PHYSICIAN: PHYSICIAN, NO ATTENDING PHYSICIAN: Thang Patrick DATE OF CONSULTATION: 02/20/2017 REFERRING PHYSICIAN: Thony Blue MD REASON FOR CONSULTATION: Hemoptysis. HISTORY OF PRESENT ILLNESS: This is a 46-year-old gentleman with past medical history of chronic obstructive pulmonary disease, obstructive sleep apnea, and cardiomyopathy, a recent history of right upper lobe hemoptysis, specifically the right upper lobe apical segment with failed embolization, the patient did fail his embolization, but his bleeding stopped, he went home. After that, he came with the same episodes of hemoptysis just the same last time, which he was supposed to have worked up, the patient's CT scan did reveal bullae in the right upper lobe. The patient denied any current chest pain, pleurisy, hemoptysis, nausea, vomiting, or abdominal pain, the patient also denied any recent sick contacts or trauma to his chest. PAST MEDICAL HISTORY: Includes hypertension, hyperlipidemia, obstructive sleep apnea, nonischemic cardiomyopathy, history of multiple substance abuse including marijuana and meth, last meth use was close to 4 months ago, although the patient probably used meth a little bit closer to his admission. PAST SURGICAL HISTORY: Includes flexible laryngoscopy, bronchoscopy, and coronary angiogram. FAMILY HISTORY: Dad has history of coronary artery disease. Mother has history of congestive heart failure. SOCIAL HISTORY: The patient has a history of 25-year history of tobacco abuse. Denies drinking and reports smoking marijuana and has distant history, which was around 4 months ago of using meth. MEDICATIONS: PATIENT'S NAME: ANNETTE STEVENS [facility] AGE: 46 Y [address] ROOM: [id number] [place] [id number] LOCATION: GICU ADMIT DATE: 02/20/2017 Consultation DISCHARGE DATE: 02/23/2017 FAMILY PHYSICIAN: PHYSICIAN, NO ATTENDING PHYSICIAN: Thang Patrick Please refer to the MAR. REVIEW OF SYSTEMS: A 10-point review of systems was done and otherwise negative other than mentioned in the history of presenting illness. PHYSICAL EXAMINATION: GENERAL: The patient is lying in bed, comfortable, does not appear in acute distress. VITAL SIGNS: Including temperature of 97, blood pressure of 178/100, heart rate of 88, respiratory rate of 18, and saturating 92% on room air. HEENT: Eyes are nonicteric. Pupils equal and reactive to light and accommodation. Normocephalic, atraumatic. Wet mucous membranes. No ear or nasal discharge. NECK: Supple. No lymphadenopathy. No jugular venous distention noted. LUNGS: Good bilateral air entry with bilateral crackles at the bases. HEART: S1 and S2. No murmurs, rubs, or gallops. ABDOMEN: Soft and nontender. No palpable organs. LOWER EXTREMITIES: No edema, clubbing, or cyanosis noted. LABORATORY DATA: His white cell count was 9.6, hemoglobin 13.3, platelets 243. BUN of 20, creatinine 1.2, sodium is 141, potassium is 4, glucose of 111. Protime was. 9.1, INR was 0.87, PTT was 25. Chest x-ray shows mildly elevated right hemidiaphragm, possible bullae in the right upper lobe, and possible left and mild vascular congestion. ASSESSMENT AND PLAN: Massive hemoptysis. At the current point, the patient is stable and his hemoptysis has subsided. We note that this hemoptysis is coming from the right upper lobe apical segment. He failed bronchial embolization and he had recurrent hemoptysis at the current point. There is no need for further intervention since the bleeding has almost subsided. I would recommend Cardiothoracic Surgery consultation for possible right upper lobectomy, or stapling of the right upper bullae, a second chance for bronchial artery embolization is possible, we will also confer with Interventional Radiology. At the current point, there is no need for acute intervention. We will follow up after Cardiothoracic Surgery had evaluated the patient. I will agree with cough suppression. Further investigation into his cough suppression. PATIENT'S NAME: ANNETTE STEVENS [facility] AGE: 46 Y [address] ROOM: [place] [address] LOCATION: [facility] ADMIT DATE: 02/20/2017 Consultation DISCHARGE DATE: 02/23/2017 FAMILY PHYSICIAN: PHYSICIAN, NO ATTENDING PHYSICIAN: Thang Patrick CPAP at night for his obstructive sleep apnea. Thank you for allowing me to participate in the care of this patient. MD SILVANO DEL TORO/orly /[id number] d: 03/11/17 0026 t: 03/17/17 1706, CONSULTATION REPORT
--- NOTE | ~2017-02-20 | HP ---
PATIENT'S NAME: ANNETTE STEVENS [facility] AGE: 46 Y [address] ROOM: [place] [id number] LOCATION: [facility] ADMIT DATE: 02/20/2017 History & Physical DISCHARGE DATE: FAMILY PHYSICIAN: PHYSICIAN, NO ATTENDING PHYSICIAN: Thang NORRIS DATE OF SERVICE: CHIEF COMPLAINT: Hemoptysis. HISTORY OF PRESENT ILLNESS: The patient is a 46-year-old gentleman with past medical history of COPD, obstructive sleep apnea, cardiomyopathy, and recent history of right upper lobe hemoptysis, who presents here with hemoptysis. The patient was initially admitted to our hospital on February 16 and discharged on February 18, presented with same symptoms. The patient was seen by Dr. Blue and had bronchoscopy which showed right upper lobe bleeding. The patient was subsequently seen by IR for possible embolization. However, embolization was not able to be done as it was difficult to find the bronchial artery. During his stay, the patient's symptoms improved. The patient was discharged home in stable condition for followup. However, today, the patient wakes up with hemoptysis. He reports that he had close to half cup of kelli bloody hemoptysis in the morning and came in for evaluation. While in the emergency department, the patient has had close to 1/2 cup of hemoptysis. The patient denies any chest pain, nausea, vomiting, abdominal pain, fever, and chills. The patient still smokes cigarettes and also smokes marijuana. Of note, the patient has a history of nonischemic cardiomyopathy and reports that lately he has not had any swelling and water retention. MEDICAL HISTORY: Hypertension, hyperlipidemia, obstructive sleep apnea, nonischemic cardiomyopathy, history of multiple substance abuse including marijuana and meth. Last meth use close to 4 months ago. Currently uses marijuana. SURGICAL HISTORY: Flexible laryngoscopy, bronchoscopy, and coronary angiogram. FAMILY HISTORY: Dad has a history of CAD. Mother has a history CHF. SOCIAL HISTORY: The patient has a history of 25 years history of tobacco use. Denies drinking. Reports he smokes marijuana. Has distant history which was around 6 PATIENT'S NAME: ANNETTE STEVENS [facility] AGE: 46 Y [address] ROOM: [place] [address] LOCATION: [facility] ADMIT DATE: 02/20/2017 History & Physical DISCHARGE DATE: FAMILY PHYSICIAN: PHYSICIAN, NO ATTENDING PHYSICIAN: Thang NORRIS months ago, use of meth. MEDICATIONS: Currently being reconciled. REVIEW OF SYSTEMS: All systems have been reviewed and are negative except for what I mentioned in HPI. PHYSICAL EXAMINATION: VITAL SIGNS: Afebrile, blood pressure 178/107, heart rate of 88, respiratory rate of 18, saturating 92% on room air. GENERAL APPEARANCE: The patient is alert and awake, sitting on a bed. EYES: No discharge. HEAD: Normocephalic, atraumatic. NOSE: No nasal discharge. EARS: No ear discharge. CHEST: Right upper rhonchi. No wheezing or rales, and no excessive pulmonary muscle use. HEART: Regular rate and rhythm. No murmurs, rubs, or gallops. ABDOMEN: Soft, nontender, and nondistended. Bowel sounds present. SKIN: Warm to touch. EXTREMITIES: No edema. GEAR CUTTER: The patient is alert and oriented x3. Motor and sensory grossly intact. LABORATORY DATA: White blood cell 9.6, hemoglobin 13.3, platelets 243, BUN of 20, creatinine of 1.2. Sodium 141, potassium 4, glucose of 111, pro-time 9.1, INR 0.87, PTT 25. Chest x-ray shows mildly elevated right hemidiaphragm, possible bullae in the right upper lobe and possible left, and mild vascular congestion. ASSESSMENT AND PLAN: 1. Hemoptysis. Massive. 2. The patient with known right upper lobe hemoptysis who presents with repeat hemoptysis. We will admit the patient to ICU. We will keep the patient n.p.o. with sips with medications. We will have the patient lie on his side of bleeding. We will start the patient on promethazine/codeine for the cough. Hopefully that will decrease the irritation. The patient's blood pressure is also noted to be elevated as this could also increase the pulmonary pressure on his lung. We will try to keep blood pressure below 150. We will start the patient on nitroglycerin drip. Cardiothoracic surgeon was consulted in the ED per ED physician. Discussed case with Dr. Blue. Alumnae Secretary Dr. Blue to follow up here. Last time IR was attempted; however, the bronchial artery was not visualized. On discussion, the patient might benefit from PATIENT'S NAME: ANNETTE STEVENS [facility] AGE: 46 Y [address] ROOM: [id number] [place], [place] [address] LOCATION: [facility] ADMIT DATE: 02/20/2017 History & Physical DISCHARGE DATE: FAMILY PHYSICIAN: PHYSICIAN, NO ATTENDING PHYSICIAN: Thang NORRIS right upper lobectomy to resolve this ongoing hemoptysis. For further workup of that, we will acquire echocardiogram to make sure the patient's current ejection fraction, as prior ejection fraction was noted to be low. 3. Uncontrolled hypertension. We will start the patient on nitroglycerin drip. 4. Nonischemic cardiomyopathy with last known EF to be 20% to 35%. Chest x- ray shows some mild vascular congestion. The patient's blood pressure is noted to be elevated. We will give the patient Lasix 40 mg IV b.i.d. Also, we will continue nitroglycerin drip and beta ziggy. 5. Obstructive sleep apnea. To continue CPAP at night. 6. Hyperlipidemia. To continue statin. 7. Chronic obstructive pulmonary disease. Bronchodilator as needed. Greater than 30 minutes critical care was spent on patient care. The patient's case was discussed with the emergency department and also with Dr. Blue, Pulmonology. We will admit the patient and follow up clinically. Also, we will await cardiothoracic input for possible lobectomy. Until then, we will treat supportively. Code status on admission, full code. MD HUMBERTO FRASER/orly /[id number] D: T: HISTORY & PHYSICAL
--- NOTE | ~2017-02-20 | CON ---
PATIENT'S NAME: ANNETTE STEVENS [facility] AGE: 46 Y [address] ROOM: [address] [address] LOCATION: [facility] ADMIT DATE: 02/20/2017 Consultation DISCHARGE DATE: FAMILY PHYSICIAN: PHYSICIAN, JAYLEN ATTENDING PHYSICIAN: Thang NORRIS DATE OF CONSULTATION: 02/20/2017 REFERRING PHYSICIAN: Thony Blue MD REASON FOR CONSULTATION: Hemoptysis. HISTORY OF PRESENT ILLNESS: The patient is a 46-year-old male who was recently admitted for severe hemoptysis which ceased spontaneously. His workup included a bronchoscopy by Dr. Blue which showed bleeding from the superior segment of the right upper lobe and a CT scan which showed bilateral apical bullae. The patient has a [id number] history of smoking. He also has a history of COPD, obstructive sleep apnea, and in the past, was found to have nonischemic cardiomyopathy. He has a history of drug abuse and alcohol abuse, which he states is resolved. He was discharged on the of this month. His hemoptysis recurred in the early hours of February 20, and he came to the ER. He was given a nitroglycerin drip because of his severe hypertension, which he has a history of. This has been poorly controlled on multiple medications, numbering as many as 5, which he is on now for hypertension. He had more hemoptysis while he was in the ER, about half a cup, and then it has ceased. He denies chest pain, nausea, vomiting, abdominal pain, fever, or chills. He is still an active cigarette smoker as well as marijuana. The patient also denies edema. PAST MEDICAL HISTORY: Severe poorly controlled hypertension, hyperlipidemia, obstructive sleep apnea, history of nonischemic cardiomyopathy, polysubstance abuse, and use of methamphetamine. PAST SURGICAL HISTORY: Laryngoscopy, bronchoscopy, and cardiac cath. FAMILY HISTORY: Father: Coronary artery disease. Mother: CHF. SOCIAL HISTORY: 25 to 30 years of smoking. At this time, denies alcohol use or abuse. He smokes marijuana, and up to 4 months ago, was using methamphetamines. PATIENT'S NAME: ANNETTE STEVENS [facility] AGE: 46 Y [address] ROOM: [place] [address] LOCATION: [facility] ADMIT DATE: 02/20/2017 Consultation DISCHARGE DATE: FAMILY PHYSICIAN: PHYSICIAN, NO ATTENDING PHYSICIAN: Thang NORRIS HOME MEDICATIONS: 1. Lisinopril 40 mg daily. 2. Amlodipine 10 mg daily. 3. Coreg 12.5 mg b.i.d. 4. Lasix 40 mg daily. 5. Hydralazine 50 mg t.i.d. 6. Potassium 20 mEq daily. 7. Simvastatin 40 mg daily. 8. Nicotine patch. ALLERGIES: NO KNOWN DRUG ALLERGIES. REVIEW OF SYSTEMS: At this time, 10-point review of systems is only positive for his hemoptysis and associated coughing. PHYSICAL EXAMINATION: VITAL SIGNS: Blood pressure 160s over 90, heart rate 70s, respiratory rate 16 to 18, and afebrile. GENERAL: No apparent distress. HEENT: Normocephalic, atraumatic. Sclerae are nonicteric. NECK: No JVD. LUNGS: Nonlabored respiration with clear breath sounds. HEART: Regular rate and rhythm. No murmurs, rubs, or gallops. ABDOMEN: Soft and nontender. EXTREMITIES: No clubbing, cyanosis, or edema. PSYCHIATRIC: Normal affect, mood, and speech. MUSCULOSKELETAL: No obvious deformities or defects in range of motion. SKIN: No rashes or bruises in visible areas. IMPRESSION: 1. Hemoptysis with apical segment right upper lobe source, recurrent, status post unsuccessful attempt at bronchial artery embolization by Dr. Gay here on the last admission. May require stapling of the upper portion of his right upper lobe versus formal right upper lobectomy. 2. Severe poorly controlled hypertension, on multiple medicines. At his young age, this could be due to his drug abuse, but workup for catecholamine-secreting tumors and renal artery stenosis should be undertaken. We will plan MRI of his renals and 24-hour urine collection for fractionated catecholamines and metanephrines. PATIENT'S NAME: ANNETTE STEVENS [facility] AGE: 46 Y [address] ROOM: [address] [place] [id number] LOCATION: [facility] ADMIT DATE: 02/20/2017 Consultation DISCHARGE DATE: FAMILY PHYSICIAN: JAYLEN LEACH ATTENDING PHYSICIAN: Thang NORRIS MD WR/guerrerol /[id number] d: t: 02/21/17 1426, CONSULTATION REPORT
[~2017-02-20 05:53] MED LIST: APRESOLINE50 MG PO; ASPIRIN LO-DOSE81 MG PO; COREG12.5 M1 PO; LASIX40 MG PO; NICOTINE PATCH1 EAC1 TRANS; NORVASC10 MG PO; POTASSIUM CHLO20 ME1 PO; ZESTRIL40 MG PO; ZOCOR40 MG PO
[2017-02-20 07:08] LABS: BASOPHIL # 0.1 K/uL (0.0-0.2); BASOPHIL % 1.1 %; EOSINOPHIL # 0.4 K/uL (0.0-0.5); EOSINOPHIL % 4.3 %; HEMATOCRIT 38.8 % (37.0-53.0); HEMOGLOBIN 13.3 g/dL (12.0-17.0); IMMATURE GRANULOCYTE # 0.1 K/uL (0.0-0.3); IMMATURE GRANULOCYTE % 0.9 %; LYMPHOCYTE # 1.8 K/uL (0.8-4.0); MCH 30.6 pg (27.0-34.0); MCHC 34.3 gm/dL (32.0-36.5); MCV 89.4 fl (83.0-98.0); MONOCYTE # 0.7 K/uL (0.0-1.0); MONOCYTE % 7.7 %; MPV 12.9 fl (9.4-12.4); NEUTROPHIL # (ANC) 6.4 K/uL (1.4-9.0); NRBC % 0 /100WBC (0-0.00); RBC 4.34 M/uL (4.00-6.00); RDW-CV 13.2 % (11.9-14.6); WBC 9.6 K/uL (4.0-11.0)
[2017-02-20 07:11] LABS: PLATELET COUNT 243 K/uL (150-450)
[2017-02-20 07:18] LABS: INR - (THERAPEUTIC) 0.87 (0.92-1.07); PROTIME 9.1 SECONDS (9.8-11.4)
[2017-02-20 07:20] LABS: ALBUMIN 3.8 gm/dL (3.5-5.0); CALCIUM 8.7 mg/dL (8.5-10.5); CREATININE 1.2 mg/dL (0.6-1.3); PHOSPHORUS 3.1 mg/dL (2.5-4.9)
[2017-02-20] MEDS ORDERED: ASPIRIN LO-DOSE81 MG PO (15:03)
[2017-02-21 05:06] LABS: BASOPHIL # 0.1 K/uL (0.0-0.2); BASOPHIL % 0.8 %; EOSINOPHIL # 0.4 K/uL (0.0-0.5); EOSINOPHIL % 3.6 %; HEMATOCRIT 34.3 % (37.0-53.0); HEMOGLOBIN 11.9 g/dL (12.0-17.0); IMMATURE GRANULOCYTE # 0.1 K/uL (0.0-0.3); LYMPHOCYTE % 17.7 %; MCH 31.1 pg (27.0-34.0); MCHC 34.7 gm/dL (32.0-36.5); MCV 89.6 fl (83.0-98.0); MONOCYTE # 0.9 K/uL (0.0-1.0); MONOCYTE % 8.1 %; MPV 12.4 fl (9.4-12.4); NEUTROPHIL # (ANC) 7.8 K/uL (1.4-9.0); NEUTROPHIL % 68.8 %; NRBC % 0 /100WBC (0-0.00); PLATELET COUNT 241 K/uL (150-450); RBC 3.83 M/uL (4.00-6.00); RDW-CV 13.4 % (11.9-14.6); WBC 11.3 K/uL (4.0-11.0)
[2017-02-21 05:28] LABS: ALBUMIN 3.5 gm/dL (3.5-5.0); ANION GAP 8.7 (10.0-19.0); CALCIUM 8.4 mg/dL (8.5-10.5); CREATININE 1.2 mg/dL (0.6-1.3); POTASSIUM 3.7 mMol/L (3.7-5.1); TOTAL BILIRUBIN 0.4 mg/dL (0.0-1.5); TOTAL PROTEIN 7.2 g/dL (6.0-8.4)
[2017-02-22 05:19] LABS: BASOPHIL # 0.1 K/uL (0.0-0.2); BASOPHIL % 0.8 %; EOSINOPHIL # 0.3 K/uL (0.0-0.5); EOSINOPHIL % 3.6 %; HEMATOCRIT 37.2 % (37.0-53.0); HEMOGLOBIN 12.9 g/dL (12.0-17.0); IMMATURE GRANULOCYTE # 0.1 K/uL (0.0-0.3); IMMATURE GRANULOCYTE % 0.8 %; LYMPHOCYTE # 1.8 K/uL (0.8-4.0); LYMPHOCYTE % 20.7 %; MCH 30.9 pg (27.0-34.0); MCHC 34.7 gm/dL (32.0-36.5); MONOCYTE # 0.9 K/uL (0.0-1.0); MONOCYTE % 10.2 %; MPV 12.1 fl (9.4-12.4); NEUTROPHIL # (ANC) 5.7 K/uL (1.4-9.0); NEUTROPHIL % 63.9 %; NRBC % 0 /100WBC (0-0.00); PLATELET COUNT 253 K/uL (150-450); RBC 4.18 M/uL (4.00-6.00); RDW-CV 13.2 % (11.9-14.6); WBC 8.9 K/uL (4.0-11.0)
[2017-02-22 05:38] LABS: ALBUMIN 3.5 gm/dL (3.5-5.0); ANION GAP 8.6 (10.0-19.0); CALCIUM 8.7 mg/dL (8.5-10.5); CREATININE 1.2 mg/dL (0.6-1.3); POTASSIUM 3.6 mMol/L (3.7-5.1); TOTAL BILIRUBIN 0.4 mg/dL (0.0-1.5); TOTAL PROTEIN 7.5 g/dL (6.0-8.4)
[2017-02-23 07:06] LABS: BASOPHIL # 0.1 K/uL (0.0-0.2); BASOPHIL % 0.9 %; EOSINOPHIL # 0.4 K/uL (0.0-0.5); EOSINOPHIL % 5.3 %; HEMATOCRIT 39.2 % (37.0-53.0); HEMOGLOBIN 13.3 g/dL (12.0-17.0); IMMATURE GRANULOCYTE # 0.1 K/uL (0.0-0.3); IMMATURE GRANULOCYTE % 0.7 %; LYMPHOCYTE # 1.5 K/uL (0.8-4.0); LYMPHOCYTE % 20.4 %; MCH 30.3 pg (27.0-34.0); MCHC 33.9 gm/dL (32.0-36.5); MCV 89.3 fl (83.0-98.0); MONOCYTE # 0.7 K/uL (0.0-1.0); MONOCYTE % 9.8 %; MPV 11.9 fl (9.4-12.4); NEUTROPHIL # (ANC) 4.7 K/uL (1.4-9.0); NEUTROPHIL % 62.9 %; NRBC % 0 /100WBC (0-0.00); PLATELET COUNT 280 K/uL (150-450); RBC 4.39 M/uL (4.00-6.00); RDW-CV 13.2 % (11.9-14.6); WBC 7.4 K/uL (4.0-11.0)
[2017-02-23 07:26] LABS: ALBUMIN 3.5 gm/dL (3.5-5.0); ANION GAP 9.2 (10.0-19.0); CALCIUM 8.8 mg/dL (8.5-10.5); CREATININE 1.3 mg/dL (0.6-1.3); POTASSIUM 4.2 mMol/L (3.7-5.1); TOTAL PROTEIN 7.7 g/dL (6.0-8.4)
[2017-02-23 07:27] LABS: TOTAL BILIRUBIN 0.3 mg/dL (0.0-1.5)
[2017-02-23] MEDS ORDERED: PROMETH-CODEIN 65 ML PO (13:13)
[2017-02-23] MEDS ORDERED: ALDACTONE50 MG PO (13:24)
[2017-02-23] MEDS ORDERED: ROBITUSSIN DM120 ML PO (13:25)
== END 2017-02-23 14:00 | disposition disaster alternative care site (69) | DRG 204 ==
LOC: GMED 05:53 → GICU 10:02
PROVIDERS: Emergency Medicine; Internal Medicine; ADMIT Internal Medicine
DX: R04.2 Hemoptysis (principal); I42.9 Cardiomyopathy, unspecified; I11.0 Hypertensive heart disease with heart failure; I50.32 Chronic diastolic (congestive) heart failure; I16.1 Hypertensive emergency; G47.33 Obstructive sleep apnea (adult) (pediatric); E78.5 Hyperlipidemia, unspecified; J44.9 Chronic obstructive pulmonary disease, unspecified; I25.10 Atherosclerotic heart disease of native coronary artery without angina pectoris; F15.10 Other stimulant abuse, uncomplicated; F12.10 Cannabis abuse, uncomplicated; F17.210 Nicotine dependence, cigarettes, uncomplicated
CPT/HCPCS: C8902; J1940; J7030